=== PATIENT | male | born 1985 | race African-American/Black ===

== ENCOUNTER 2021-05-16 12:07 | Emergency (ER) | payer SELFPAY ==
[~2021-05-16] VITALS: Ht 175.3 cm; Wt 78.0 kg
[2021-05-16] MEDS ORDERED: LORAZEPAM 1MG TABLET PO ONE ×2 (12:30→18:05)
[2021-05-16 19:16] LABS: CLARITY URINE CLEAR (CLEAR); COLOR URINE DARK YELLOW (YELLOW); KETONES URINE 1+ (NEGATIVE); LEUKOCYTE ESTERASE URINE NEGATIVE (NEGATIVE); NITRITE URINE NEGATIVE (NEGATIVE); OCCULT BLOOD URINE NEGATIVE (NEGATIVE); PH URINE 5.5 (4.5-8.0); PROTEIN URINE 2+ (NEGATIVE); SPECIFIC GRAVITY URINE 1.035 (1.005-1.030)
[2021-05-16 19:36] LABS: *AMPHETAMINES SCREEN URINE PRESUMTIVE POSITIVE (NEGATIVE); *BARBITURATES SCREEN URINE NEGATIVE (NEGATIVE); *BENZODIAZEPINES SCREEN URINE NEGATIVE (NEGATIVE); *COCAINE SCREEN URINE NEGATIVE (NEGATIVE); METHADONE URINE SCREEN NEGATIVE (NEGATIVE); OPIATES URINE SCREEN NEGATIVE (NEGATIVE)
[2021-05-16 19:37] LABS: CANNABINOID URINE SCREEN NEGATIVE (NEGATIVE); PHENCYCLIDINE URINE SCREEN NEGATIVE (NEGATIVE)
[2021-05-16 21:00] VITALS: BP 126/63
== END 2021-05-16 21:12 | disposition home or self-care (01) ==
LOC: ER 12:25
DX: T43.621A Poisoning by amphetamines, accidental (unintentional), initial encounter (principal); R44.0 Auditory hallucinations; F15.150 Other stimulant abuse with stimulant-induced psychotic disorder with delusions; F20.9 Schizophrenia, unspecified; Z91.14 Patient's other noncompliance with medication regimen; Y92.89 Other specified places as the place of occurrence of the external cause
CPT/HCPCS: 36415; 80305; 81003; 99283